=== PATIENT | male | born 1995 | race African-American/Black ===

== ENCOUNTER 2016-09-04 12:49 | Emergency (ER) | payer SELFPAY ==
[2016-09-04] MEDS ORDERED: BUPIVACAINE HCL 0.5 % INJ/PF 30 ML SDV INJ ONE (13:50)
[2016-09-04] MEDS ORDERED: PENICILLIN V POTASSIUM 500 MG TABLET PO ONE (13:50)
[2016-09-04] MEDS ORDERED: HYDROCODONE/ACETAMINOPHEN 5-325 MG 6 TAB/DSPK PO PRN (13:50)
--- NOTE | 2016-09-04 14:15 | ER Document Report ---
ED Oral Problem - General Chief Complaint: Mouth Problem Stated Complaint: LEFT MOUTH PAIN Time Seen by Provider: 09/04/16 13:36 Notes: Patient is a 21-year-old male presents with left lower jaw pain, swelling for the past 3 days. Patient states he is fractured tooth approx 6 mth sold. Patient states that he has not seen a dentist. Patient denies any fever or chills. Does not have a primary care provider. Past medical history significant for history of benign heart murmur. Patient is a tobacco user. TRAVEL OUTSIDE OF THE [place]S. IN LAST 30 DAYS: No - Related Data Allergies/Adverse Reactions: No Known Allergies Allergy (Unverified 09/04/16 12:55) Past Medical History - Social History Smoking Status: Current Every Day Smoker Family History: Reviewed & Not Pertinent Renal/ Medical History: Denies: Hx Peritoneal Dialysis Review of Systems - Review of Systems Constitutional: No symptoms reported EENT: See HPI -: Yes All other systems reviewed and negative Physical Exam - Vital signs Vitals: Temp Pulse Resp BP Pulse Ox 98.4 F 69 16 156/74 H 100 09/04/16 12:55 09/04/16 12:55 09/04/16 12:55 09/04/16 12:55 09/04/16 12:55 - General General appearance: Appears well, Alert In distress: None - HEENT Mouth/Lips: Caries, Dental fracture - 19 is fractured with evidence of gingival abscess that is tender to touch without any signs of drainage. Pharynx: Normal. No: Peritonsillar abscess, Retropharyngeal abscess, Potential airway comprom. Neck: Normal, Other - No evidence of Ольга angina. No: Lymphadenopathy - Respiratory Respiratory status: No respiratory distress Chest status: Nontender Breath sounds: Normal Chest palpation: Normal - Cardiovascular Rhythm: Regular Heart sounds: Normal auscultation, S1 appreciated, S2 appreciated - Neurological Neuro grossly intact: Yes Cognition: Normal Orientation: AAOx4 Swapnil Coma Scale Eye Opening: Spontaneous [place] Coma Scale Verbal: Oriented Swapnil Coma Scale Motor: Obeys Commands Swapnil Coma Scale Total: 15 Course - Re-evaluation Re-evalutation: 09/04/16 14:14 Patient is a 21-year-old male who is hemodynamic stable, no acute distress afebrile. I&D of dental abscess performed at the bedside for purulent material. Patient tolerated procedure well. Patient initiated on p.o. antibiotics and instruction to follow-up with a dentist in 7-10 days. Patient expressed understanding. After performing a Medical Screening Examination, I estimate there is LOW risk for a DEEP SPACE INFECTION (e.g., ОЛЬГА'S ANGINA OR RETROPHARYNGEAL ABSCESS), MENINGITIS, INTRACRANIAL HEMORRHAGE, or AIRWAY COMPROMISE, thus I consider the discharge disposition reasonable. Also, there is no evidence or peritonitis, sepsis, or toxicity. I have reevaluated this patient multiple times and no significant life threatening changes are noted. The patient and I have discussed the diagnosis and risks, and we agree with discharging home with close follow-up with the understanding that symptoms and presentations can change. We also discussed returning to the Emergency Department immediately if new or worsening symptoms occur. We have discussed the symptoms which are most concerning (e.g., changing or worsening pain, trouble swallowing or breathing, neck stiffness or fever) that necessitate immediate return. - Vital Signs Vital signs: Temp Pulse Resp BP Pulse Ox 98.3 F 16 L 16 144/78 H 98 09/04/16 14:40 09/04/16 14:40 09/04/16 14:40 09/04/16 14:40 09/04/16 14:40 Procedures - Incision and Drainage Left Type: Simple Anesthetic type: 1% Lidocaine, 0.5% Bupivacaine mL's of anesthetic: 5 Incision Method: Incision made with needle Amount/type of drainage: 2cc purulent material Discharge - Discharge Clinical Impression: Toothache Condition: Good Disposition: HOME, SELF-CARE Instructions: [facility], Penicillin V K ([facility]), Toothache ([facility]) Additional Instructions: [facility] [address] [place], [place] Sunday mornings, by appointment [facility] [address] [place] [address] [facility] [address] [facility] [address] [facility] [address] [facility]. [facility] [address] [facility] [email or web address] [facility] [address] [place] [address] Sunday- 8:00am to 5:00 pm Will see patients from other [facility]. Charges based on income and family size and accepts Medicare, Medicaid, and Insurances Will pull molars [facility] Student Clinics [facility] [place] [id number] Hours of Operation 8:00 am - 4:30 pm weekdays The following dental offices accept Medicaid: [facility] Dr. Brown Dr. Ortiz Dr. Beck Dr. Garza Michael Willson Lutsavage, and [facility] Dr. Herrera ([place]) Dr. Avalos ([place]) [facility] Drs. Arellano ([place]) Dr. Captuo ([place]) [facility] Dr. Hollingsworth ([place]) Drs. Iqbal and ([place]) Medicaid Care Line Prescriptions: Penicillin V Potassium [Penicillin Vk 500 mg Tablet] 500 mg PO BID #20 tablet Forms: Elevated Blood Pressure
[2016-09-04 15:28] VITALS: BP 144/78
== END 2016-09-04 14:40 | disposition home or self-care (01) ==
LOC: ER 12:49
PROC: 0C96XZZ Drainage of Lower Gingiva, External Approach (ICD-10-PCS; principal; 2016-09-04)
DX: K08.89 Other specified disorders of teeth and supporting structures (principal); K04.7 Periapical abscess without sinus; R68.84 Jaw pain; R22.0 Localized swelling, mass and lump, head; F17.200 Nicotine dependence, unspecified, uncomplicated
CPT/HCPCS: 99283

== ENCOUNTER 2017-07-19 09:54 | Emergency (ER) | payer SELFPAY ==
[2017-07-19] MEDS ORDERED: LIDOCAINE 2% VISCOUS SOLN 20 ML UDCUP PO ONE (10:10)
[2017-07-19] MEDS ORDERED: PENICILLIN V POTASSIUM 500 MG TABLET PO ONE (10:10)
[2017-07-19 10:11] VITALS: BP 147/74
[2017-07-19] MEDS ORDERED: IBUPROFEN 600 MG TABLET PO ONE (10:11)
--- NOTE | 2017-07-19 10:17 | ER Document Report ---
ED Oral Problem - General Chief Complaint: Toothache Stated Complaint: MOUTH PAIN Time Seen by Provider: 07/19/17 10:04 Mode of Arrival: Ambulatory Information source: Patient Notes: 22-year-old male presents to ED for complaint of dental pain to the right upper and lower jaw. He states that he is had these broken teeth for a while it is been hurting for the last 3 days worse since last night. He also has a broken tooth on the left lower jaw that should be hurting before long it is very close to the gumline. Patient states he plans to go to a dentist that has a free clinic in [place] on August 07. TRAVEL OUTSIDE OF THE U.S. IN LAST 30 DAYS: No - HPI Patient complains to provider of: Toothache Onset: Other - See note above Quality of pain: Sharp, Throbbing Severity: Severe Pain Level: 5 Associated symptoms: Toothache Worsened by: Cold Relieved by: Nothing Similar symptoms previously: Yes Recently seen / treated by doctor/dentist: No - Related Data Allergies/Adverse Reactions: No Known Allergies Allergy (Verified 07/19/17 09:56) Past Medical History - General Information source: Patient - Social History Smoking Status: Current Every Day Smoker Cigarette use (# per day): Yes - 4-6 cigarettes Chew tobacco use (# tins/day): No Smoking Education Provided: Yes - 4 minutes Frequency of alcohol use: Rare Drug Abuse: None Occupation: [employer] Family History: Reviewed & Not Pertinent Patient has suicidal ideation: No Patient has homicidal ideation: No - Medical History Medical History: Other - Bacterial infection and leg - Past Medical History Cardiac Medical History: Reports: None Pulmonary Medical History: Reports: None EENT Medical History: Reports: None Neurological Medical History: Reports: None Endocrine Medical History: Reports: None Renal/ Medical History: Reports: None Malignancy Medical History: Reports None GI Medical History: Reports: None Musculoskeltal Medical History: Reports None Skin Medical History: Reports Hx Cellulitis Psychiatric Medical History: Reports: None Traumatic Medical History: Reports: None Infectious Medical History: Reports: None Past Surgical History: Reports: Hx Orthopedic Surgery - Immunizations Immunizations up to date: Yes Review of Systems - Review of Systems Constitutional: No symptoms reported EENT: Mouth pain, Dental problem Cardiovascular: No symptoms reported Respiratory: No symptoms reported Gastrointestinal: No symptoms reported Genitourinary: No symptoms reported Male Genitourinary: No symptoms reported Musculoskeletal: No symptoms reported Skin: No symptoms reported Hematologic/Lymphatic: No symptoms reported Neurological/Psychological: No symptoms reported -: Yes All other systems reviewed and negative Physical Exam - Vital signs Vitals: Temp Pulse Resp BP Pulse Ox 98.5 F 48 L 16 147/74 H 99 07/19/17 10:00 07/19/17 10:00 07/19/17 10:00 07/19/17 10:00 07/19/17 10:00 Interpretation: Normal - General General appearance: Appears well, Alert - HEENT Head: Normocephalic, Atraumatic Eyes: Normal Pupils: PERRL Mouth/Lips: Caries - Dental cavities to the left and right lower jaw with teeth broken off almost to the gumline. Mild redness and swelling to the gums, gingivitis to most of lower jaw - Respiratory Respiratory status: No respiratory distress Chest status: Nontender Breath sounds: Normal Chest palpation: Normal - Cardiovascular Rhythm: Regular Heart sounds: Normal auscultation Murmur: No - Abdominal Inspection: Normal Distension: No distension Bowel sounds: Normal Tenderness: Nontender Organomegaly: No organomegaly - Back Back: Normal, Nontender - Extremities General upper extremity: Normal inspection, Nontender, Normal color, Normal ROM , Normal temperature General lower extremity: Normal inspection, Nontender, Normal color, Normal ROM , Normal temperature, Normal weight bearing. No: Natan's sign - Neurological Neuro grossly intact: Yes Cognition: Normal Orientation: AAOx4 [place] Coma Scale Eye Opening: Spontaneous Swapnil Coma Scale Verbal: Oriented [place] Coma Scale Motor: Obeys Commands Swapnil Coma Scale Total: 15 Speech: Normal Motor strength normal: LUE, RUE, LLE, RLE Sensory: Normal - Psychological Associated symptoms: Normal affect, Normal mood - Skin Skin Temperature: Warm Skin Moisture: Dry Skin Color: Normal Course - Re-evaluation Re-evalutation: 07/19/17 10:15 Patient was treated with Penicillin VK for the dental infection and viscous lidocaine for the dental pain. He was also treated with ibuprofen. Patient to follow-up with the dentist and have his teeth treated as dentally appropriate. After performing a Medical Screening Examination, I estimate there is LOW risk for a DEEP SPACE INFECTION (e.g., ОЛЬГА'S ANGINA OR RETROPHARYNGEAL ABSCESS), MENINGITIS, INTRACRANIAL HEMORRHAGE, or AIRWAY COMPROMISE, thus I consider the discharge disposition reasonable. Also, there is no evidence or peritonitis, sepsis, or toxicity. I have reevaluated this patient multiple times and no significant life threatening changes are noted. The patient and I have discussed the diagnosis and risks, and we agree with discharging home with close follow-up with the understanding that symptoms and presentations can change. We also discussed returning to the Emergency Department immediately if new or worsening symptoms occur. We have discussed the symptoms which are most concerning (e.g., changing or worsening pain, trouble swallowing or breathing, neck stiffness or fever) that necessitate immediate return. - Vital Signs Vital signs: Temp Pulse Resp BP Pulse Ox 98.5 F 57 L 16 147/74 H 99 07/19/17 10:00 07/19/17 10:20 07/19/17 10:20 07/19/17 10:00 07/19/17 10:20 Discharge - Discharge Clinical Impression: Pain due to dental caries Condition: Stable Disposition: HOME, SELF-CARE Additional Instructions: TOOTHACHE: Your pain is due to dental decay. The tooth must be repaired in order for you to feel better. You will, therefore, be referred to a dentist. We do not have dentists on the staff at [facility]. Severe swelling or drainage around a tooth usually means a dental abscess. This also requires evaluation and treatment by the dentist, but antibiotics may be prescribed while awaiting dental treatment. You should be rechecked immediately if you develop major swelling of the face, increasing pain, a lump in the jaw or gums, headache, difficulty swallowing, or fever. PENICILLIN V K: You have been given a prescription for Penicillin VK. Your physician has determined that this is the best antibiotic for your condition. Pen VK can be taken with meals, however more of the antibiotic gets into the bloodstream if it's taken on an empty stomach. Penicillin usually has no side effects. However, allergy to penicillins is common. If you have had an allergic reaction to any drug of the penicillin family, you should never take any other penicillin. Notify your doctor at once if you develop hives, itching, swelling, faintness, or shortness of breath. You have been given a syringe of viscous lidocaine you can put a small amount of viscous lidocaine to the tooth and the surrounding gums as needed for pain. You can do this every 1-2 hours. Please follow-up with the dentist as instructed. Salt and soda solution 1 quart of water 1 tablespoon of salt 1 teaspoon of baking soda Mixed 3 ingredients together and boil for 1 minute Placed in a covered quart jar Use 1/2 ounce of cold solution to gargle 3 times a day FOLLOW-UP CARE: You have been referred for follow-up care to the dentists listed below. Call the dentists office for an appointment as you were instructed or within the next two days. If you experience worsening or a significant change in your symptoms, notify the physician immediately or return to the Emergency Department at any time for re-evaluation. [facility] 1 [place], [place] [facility] [address] [place] [address] [facility] [address] [facility] [address] [facility] [address] [email or web address] [address] [place] [address] Sunday- 8:00am to 5:00 pm Will see patients from other [facility]. Charges based on income and family size and accepts Medicare, Medicaid, and Insurances Will pull molars [facility] Student Clinics [facility] [place] [facility] [place] [address] Hours of Operation 8:00 am - 4:30 pm weekdays The following dental offices accept Medicaid: [facility] Dr. Brown Dr. Oritz Dr. Beck Dr. Garza Michael Wlilson Lutsavage, and [facility] Dr. Herrera ([place]) Dr. Avalos ([place]) [facility] Drs. Valencia and Chase ([place]) Dr. Caputo ([place]) [facility] Dr. Hollingsworth ([place]) Drs. Iqbal and ([place]) Medicaid Care Line Prescriptions: Ibuprofen 600 mg PO Q8HP PRN #20 tablet PRN Reason: Penicillin V Potassium [Penicillin Vk 500 mg Tablet] 500 mg PO BID #20 tablet Forms: Elevated Blood Pressure, Smoking Cessation Education, Return to Work
== END 2017-07-19 10:23 | disposition home or self-care (01) ==
LOC: ER 09:54
DX: K02.9 Dental caries, unspecified (principal); F17.210 Nicotine dependence, cigarettes, uncomplicated
CPT/HCPCS: 99406; 99282; J3490

== ENCOUNTER 2018-07-17 08:57 | Emergency (ER) | payer SELFPAY ==
--- NOTE | 2018-07-17 09:55 | ER Document Report ---
HPI - HPI Patient complains to provider of: Sore throat and abscess Time Seen by Provider: 07/17/18 09:25 Onset: Other Quality of pain: Achy Pain Level: 1 Context: Patient presents emergency department with complaints of sore throat for the last couple days and he noticed he is been spitting up some blood. He denies coughing. He reports he just notices blood every now and then that he spits up. Denies fever vomiting diarrhea. Has not been around anybody with strep throat that he knows of. Also complains of an abscess under his right arm for the last couple days. Reports he had it before. Denies history of MRSA but reports when he was a child he spent 2 months in the hospital for leg infection. Associated Symptoms: None Exacerbated by: Denies Relieved by: Denies Similar symptoms previously: No Recently seen / treated by doctor: No Past Medical History - General Information source: Patient - Social History Smoking Status: Current Every Day Smoker Cigarette use (# per day): Yes Frequency of alcohol use: None Drug Abuse: None Lives with: Family Family History: Reviewed & Not Pertinent Patient has suicidal ideation: No Patient has homicidal ideation: No Renal/ Medical History: Denies: Hx Peritoneal Dialysis Skin Medical History: Reports Hx Cellulitis Past Surgical History: Reports: Hx Orthopedic Surgery - Immunizations Immunizations up to date: Yes Vertical Provider Document - CONSTITUTIONAL Agree With Documented VS: Yes Exam Limitations: No Limitations General Appearance: WD/WN, No Apparent Distress - INFECTION CONTROL TRAVEL OUTSIDE OF THE U.S. IN LAST 30 DAYS: No - HEENT HEENT: Atraumatic, Normocephalic, Pharyngeal Erythema - Patient speaking in a clear voice good airway no trismus. negative: Conjuctival Injection, Pharyngeal Exudate, Tympanic Membrane Red, Tympanic Membrane Bulging - NECK Neck: Normal Inspection, Supple. negative: Lymphadenopathy-Left, Lymphadenopathy-Right - RESPIRATORY Respiratory: Breath Sounds Normal, No Respiratory Distress - CARDIOVASCULAR Cardiovascular: Regular Rate, Regular Rhythm - MUSCULOSKELETAL/EXTREMETIES Musculoskeletal/Extremeties: MAEW, FROM, Non-Tender - NEURO Level of Consciousness: Awake, Alert, Appropriate Motor/Sensory: No Motor Deficit - DERM Integumentary: Warm, Dry, Abscess Adult Front & Back Diagram: 1 - Abscess under right axilla approximately 2 cm around with induration fluctuance Course - Re-evaluation Re-evalutation: 07/17/18 19:53 Strep test negative. Patient was instructed on Bactrim for abscess. Instructed to monitor site for increasing infection return for concerns or worsening infection. He verbalized understanding to instructions. He was also instructed on signs and symptoms of allergic reaction to Bactrim. Dictation of this chart was performed using voice recognition software; therefore, there may be some unintended grammatical errors. - Vital Signs Vital signs: Temp Pulse Resp BP Pulse Ox 98.2 F 65 14 144/78 H 98 07/17/18 09:04 07/17/18 09:04 07/17/18 09:04 07/17/18 09:04 07/17/18 09:04 Procedures - Incision and Drainage Right Axillae Type: Simple Anesthetic type: 1% Lidocaine Blade size: 11 I&D procedure: Betadine prep applied Incision Method: Incision made by scalpel Notes: 07/17/18 10:29 area probed , patient tolerated procedure with facial grimace Discharge - Discharge Clinical Impression: Sore throat, Abscess of axilla, right Condition: Stable Disposition: HOME, SELF-CARE Instructions: Abscess ([facility]), Family Physicians / Practices, Post Incision and Drainage, Sore Throat ([facility]), Trimethoprim-Sulfa ([facility]) Additional Instructions: *You have been treated for an abscess with incision and drainage and sore throat *Take medication as prescribed for the abscess *Monitor the site for signs of increasing infection such as increasing pain, redness, swelling, warmth *keep the area clean *Rapid strep test was negative. A throat culture has been done. If you need different antibiotics you will be contacted within the next 3 days. *Warm salt water gargles and throat lozenges for comfort *Change toothbrush after two days of antibiotics *Do not let anyone drink/eat after you *Follow up with a primary care provider within one week for recheck *Return to ED for signs of increasing infection, worsening condition, changes, needs Monitor your blood pressure. Your blood pressure was elevated today. This may be because you were anxious, in pain or because you need medication. It is important to follow up with your primary care provider for full evaluation. Prescriptions: Sulfamethoxazole/Trimethoprim [Bactrim Ds Tablet] 1 each PO BID #20 tablet Forms: Elevated Blood Pressure, Return to Work
[2018-07-17] MEDS ORDERED: IBUPROFEN 800 MG TABLET PO ONE (10:28)
[2018-07-17 11:56] VITALS: BP 129/72
== END 2018-07-17 11:15 | disposition home or self-care (01) ==
LOC: ER 08:57
DX: L02.411 Cutaneous abscess of right axilla (principal); J02.9 Acute pharyngitis, unspecified; R04.2 Hemoptysis; F17.210 Nicotine dependence, cigarettes, uncomplicated
CPT/HCPCS: 87070; 87075; 87077; 87186; 87205; 87880; 99283

== ENCOUNTER 2019-01-20 10:01 | Emergency (ER) | payer SELFPAY ==
[2019-01-20 11:06] VITALS: BP 145/69
[2019-01-20] MEDS ORDERED: IBUPROFEN 800 MG TABLET PO ONE (11:56)
--- NOTE | 2019-01-20 11:59 | ER Document Report ---
HPI - HPI Patient complains to provider of: cough, chest and back pain Time Seen by Provider: 01/20/19 11:50 Onset: Other - sunday Onset/Duration: Persistent Quality of pain: Achy Pain Level: 3 Context: 23-year-old male with no prior history presents emergency department with complaints of productive cough body aches some diarrhea since Sunday. Reports he is taking [id number] Mucinex without relief of symptoms. Reports his chest and his back is hurting from coughing so much. Reports other family members are also ill. Denies fever and vomiting. Patient reports decreased appetite but drinking p.o. fluids. Associated Symptoms: Body/muscle aches, Productive cough Exacerbated by: Denies Relieved by: Denies Similar symptoms previously: No Recently seen / treated by doctor: No Past Medical History - General Information source: Patient - Social History Smoking Status: Current Every Day Smoker Chew tobacco use (# tins/day): No Frequency of alcohol use: None Drug Abuse: None Lives with: Family Family History: Reviewed & Not Pertinent Patient has suicidal ideation: No Patient has homicidal ideation: No - Medical History Medical History: Negative Renal/ Medical History: Denies: Hx Peritoneal Dialysis Skin Medical History: Reports Hx Cellulitis Past Surgical History: Reports: Hx Orthopedic Surgery - Immunizations Immunizations up to date: Yes Vertical Provider Document - CONSTITUTIONAL Agree With Documented VS: Yes Exam Limitations: No Limitations General Appearance: WD/WN, No Apparent Distress - INFECTION CONTROL TRAVEL OUTSIDE OF THE [place].S. IN LAST 30 DAYS: No - HEENT HEENT: Atraumatic, Normocephalic, PERRLA, Pharyngeal Erythema. negative: Conjuctival Injection, Tympanic Membrane Red - NECK Neck: Normal Inspection, Supple. negative: Lymphadenopathy-Left, Lymphadenopathy-Right - RESPIRATORY Respiratory: No Respiratory Distress - CARDIOVASCULAR Cardiovascular: Regular Rate, Regular Rhythm - GI/ABDOMEN Gastrointestinal: Abdomen Soft, Abdomen Non-Tender - BACK Back: Normal Inspection. negative: CVA Tenderness-Right, CVA Tenderness-Left - MUSCULOSKELETAL/EXTREMETIES Musculoskeletal/Extremeties: BERTHA MERCHANT - NEURO Level of Consciousness: Awake, Alert, Appropriate Motor/Sensory: No Motor Deficit - DERM Integumentary: Warm, Dry, No Rash Course - Re-evaluation Re-evalutation: 01/20/19 13:49 23-year-old male presents with cough body aches. Positive for influenza B. Patient instructed on this instructed on medication importance of pushing fluids good handwashing follow-up with primary care provider. He verbalized understanding to all instructions. Chest X-Ray 01/20/19 11:56 IMPRESSION: NO ACUTE RADIOGRAPHIC FINDING IN THE CHEST. - Vital Signs Vital signs: Temp Pulse Resp BP Pulse Ox 100.6 F H 81 18 145/69 H 95 01/20/19 11:51 01/20/19 11:04 01/20/19 11:51 01/20/19 11:04 01/20/19 11:51 - Diagnostic Test Radiology reviewed: Reports reviewed Discharge - Discharge Clinical Impression: Cough, Influenza B Condition: Stable Disposition: HOME, SELF-CARE Instructions: Influenza ([facility]) [id number], Oral Narcotic Medication ([facility]) Additional Instructions: *You have been evaluated for COUGH, BODY ACHES, INFLUENZA B *Increase fluid intake as discussed *Take medication as prescribed *Monitor your temperature, take Tylenol as indicated *Follow up with a primary care provider within 1 week for recheck Good handwashing *Return to ED for worsening condition, changes, needs Forms: Return to Work
--- NOTE | 2019-01-20 13:29 | RADIOLOGY REPORT (SQ) ---
EXAM DESCRIPTION: CHEST 2 VIEWS COMPLETED DATE/TIME: 01/20/2019 12:45 pm REASON FOR STUDY: cough fever COMPARISON: None. EXAM PARAMETERS: NUMBER OF VIEWS: two views TECHNIQUE: Digital Frontal and Lateral radiographic views of the chest acquired. RADIATION DOSE: NA LIMITATIONS: none FINDINGS: LUNGS AND PLEURA: No opacities, masses or pneumothorax. No pleural effusion. MEDIASTINUM AND HILAR STRUCTURES: No masses or contour abnormalities. HEART AND VASCULAR STRUCTURES: Heart normal size. No evidence for failure. BONES: No acute findings. HARDWARE: None in the chest. OTHER: No other significant finding. IMPRESSION: NO ACUTE RADIOGRAPHIC FINDING IN THE CHEST. TECHNICAL DOCUMENTATION: JOB ID: [id number] [employer]- All Rights Reserved Reading location - IP/workstation name: [email or web address]
[2019-01-20 13:45] LABS: A TYPE INFLUENZA AG NEGATIVE (NEGATIVE); B INFLUENZA AG POSITIVE (NEGATIVE)
[2019-01-20] MEDS ORDERED: HYDROCODONE/ACETAMINOPHEN 5-325 MG (6 TAB/ER DISP) PO PRN (13:48)
== END 2019-01-20 14:21 | disposition home or self-care (01) ==
LOC: ER 10:01
DX: J10.1 Influenza due to other identified influenza virus with other respiratory manifestations (principal); R05 Cough; R19.7 Diarrhea, unspecified; R07.9 Chest pain, unspecified; M54.9 Dorsalgia, unspecified; M79.10 Myalgia, unspecified site; F17.200 Nicotine dependence, unspecified, uncomplicated
CPT/HCPCS: 71046; 87804; 99283